=== PATIENT | male | born 1980 | race Caucasian/White ===

== ENCOUNTER 2021-05-17 02:30 | Emergency (ER) | payer SELFPAY ==
[2021-05-17 02:35] VITALS: BP 131/88; PULSE 88; RESP 18; TEMP 36.6; O2SAT 99; BMI 25.7
--- NOTE | 2021-05-17 02:39 | W.ED.SOB ---
HPI - SOB/Dyspnea General: Chief Complaint: Neck Pain/Injury Stated Complaint: Bleeding throat possible strep, SOB Time Seen by Provider: 05/17/21 02:38 History of Present Illness: HPI Narrative: Mr. Espitia is a 40-year-old gentleman without significant past medical history presents emergency department due to sore throat and chest pain/shortness of breath. Symptom onset of symptoms was gradual approximately 3 days ago with sore throat. He endorses initial pain with swallowing now generalized pain. He does have pink sputum associated with this and has tasted blood. Mild associated neck discomfort, mild generalized symptoms. Additionally has left sided arm and chest pain. Mild cough. No other specific changes in health. Does have a history of strep throat and tried amoxicillin though these were old pills. Is tolerating her secretions. No stridor or adventitious upper airway noises. Moderate intensity and worsening. No other specific changes in health, exacerbating, relieving factors identified. No fam hx of early cardiac , + smoking but no other known risk factors Review of Systems General: Reports: 10 or more systems reviewed and unremarkable except in HPI and below PFS ED PFSH: Medical History (Updated 05/25/21 @ 00:00 by ) No significant past medical history Surgical History (Updated 05/17/21 @ 02:53 by Wesley Simmons MD) No significant past surgical history Social History (Updated 05/17/21 @ 02:53 by Wesley Simmons MD) Smoking and tobacco status: current every day smoker Physical Exam Const: COMMON NORMALS: alert GENERAL APPEARANCE: cooperative, well developed and ill appearing (Somewhat ill-appearing) HENMT: COMMON NORMALS: normocephalic and atraumatic HEAD & SCALP: normocephalic and atraumatic THROAT: uvula midline OTHER: Mildly muffled/hoarse voice. No evidence of trismus. No evidence of Jorge's angina. Posterior pharynx is erythematous without plaques or bleeding lesions. No evidence of peritonsillar abscess. Eye: COMMON NORMALS: conjunctivae normal CONJUNCTIVA: Yes conjunctivae normal SCLERA: sclerae normal Neck/C-Spine: COMMON NORMALS: supple and no meningeal signs GENERAL: Yes trachea midline and Yes lymphadenopathy (Tender) OTHER: No tracheal crepitus or significant pain compared to other readings. Resp: COMMON NORMALS: normal respiratory effort EFFORT & INSPECTION: Yes able to speak in complete sentences Cardio: COMMON NORMALS: regular rate and regular rhythm RATE: regular rate RHYTHM: regular rhythm GI: COMMON NORMALS: Soft to palpation PALPATION: Yes Soft to palpation and No Tenderness to palpation present (GI) PERCUSSION: normal to percussion Extremity: GENERAL: Yes normal exam except as noted and No edema Neuro: COMMON NORMALS: moves all extremities SENSORIUM/ORIENTATION: Yes alert and No Orientation impaired MENINGEAL SIGNS: Yes no meningeal signs Psych: COMMON NORMALS: mental status grossly normal and Normal thought process present THOUGHT PROCESS: Normal thought process present Course ED course: - Patient was seen and evaluated by me at bedside -Vital signs obtained - Initial evaluation notable for somewhat ill appearance. Exam as above. - Symptom treatments ordered - Labs notable for negative strep and viral studies. - Given negative rapid strep patient is ill enough appearing that I believe he requires further evaluation to rule out deep space infection especially in the context of chest pain and arm pain associated with symptoms of throat pain - Imaging notable for peritonsillar infectious changes with mild deep tracking edema. With symptom treatment I had already ordered steroids. - Upon serial reexamination after treatment the patient was somewhat improved. There is no evidence of worsening. No evidence of stridor or impending airway compromise. Patient is tolerating oral secretions and p.o. intake. - Based on patient history, evaluation, labs, and imaging as interpreted the most likely cause of the patient's condition is peritonsillar infection without evidence of abscess and mild edema present. - The results of ED evaluation were discussed with the patient including prescriptions and/or symptomatic cares (if applicable) including appropriate and responsible use, followup plan, and return precautions. The patient verbalized understanding and felt safe for discharge. - Patient discharged in satisfactory condition. Note: Click bubbles or prepopulated kearney in note writing are used for assistance with data collection and billing and are inherently more limited than narrative and other text portions of this note. Please use narrative for additional clinical history and defer to narrative/free test for any case of contradictory information. If information appears in only free text or click bubble it should be considered present or absent as reported. Please contact note quality analyst/technical writer for clarifications of clinical information or contradictory information. Vital Signs: Vital signs: Vital Signs Temperature 97.8 F 05/17/21 02:35 Pulse Rate 94 05/17/21 05:16 Respiratory Rate 18 05/17/21 05:16 Blood Pressure 134/77 05/17/21 05:16 Pulse Oximetry 98 05/17/21 05:16 MDM - SOB/Dyspnea MDM Narrative: Medical decision making narrative: 40-year-old gentleman without significant past medical history presenting to the emergency department with sore throat. Strep study negative and viral studies negative. CT noted edema and enlargement of the right palatal tonsils with edema extending into the right parapharyngeal space and right hypopharynx, consistent with infection. However, no organized fluid collection. No evidence of airway compromise or adventitious sounds with breathing. Patient tolerated p.o. intake. Given course of steroids as well as antibiotics and will be discharged home with strict return precautions. Medical Records: Attestation: I reviewed the patient's medical records. Lab Data: Attestation: I reviewed the patient's lab results. Labs: Lab Results 05/17/21 05/17/21 05/17/21 03:15 03:15 03:15 Coronavirus 229E ( PCR) Nasal/Oral COVID-1 9 PCR Cancelled Influenza Type A A g Negative (Negative) Influenza Type B A g Negative (Negative) SARS-CoV-2 (PCR) Group A Strep Rapi d Negative (Negative) 05/17/21 03:19 Coronavirus 229E ( PCR) Not detected (NOT DETECT) Nasal/Oral COVID-1 9 PCR Influenza Type A A g Influenza Type B A g SARS-CoV-2 (PCR) Not detected (NOT DETECT) Group A Strep Rapi d Discharge Plan Discharge Patient Disposition: Home Clinical Impression: Cellulitis of tonsil, Pharyngeal edema, Acute sore throat Condition: Stable Prescriptions: New Augmentin 875-125 mg tablet 1 tab PO BID Qty: 20 RF: 0 Discharge Orders: Discharge ED (Routine); Ordered 05/17/21 Ordered By: Wesley Simmons Referrals: Isaac Gracia MD [Primary Care Provider] - Patient Instructions: Pharyngitis (ED), Tonsillitis (ED) Activity Restrictions/Additional Instructions: Thank you for visiting the emergency department. You were seen and evaluated for sore throat. You were found to have likely infection as well as some swelling. This will be treated with antibiotics. If swelling worsens this can create problems breathing, as discussed please return for any difficulty breathing, difficulty swallowing, noisy breathing, if you feel worse, or anything else that you are concerned about and feel needs emergency department evaluation. Coding Level of Care Code ED [employer]
--- NOTE | 2021-05-17 02:48 | ECG_ITS ---
[facility] Test Date: 2021-05-17 Pat Name: John Williamson Department: Room: Gender: Male [employer]: : 1980 Requested By: Wesley Simmons Order Number: [id number] Kayley MD: DAGOBERTO DAMON Measurements Intervals [place] Rate: 73 P: 54 MO: 146 QRS: 55 QRSD: 113 T: 35 QT: 393 QTc: 433 Interpretive Statements SINUS RHYTHM INCOMPLETE RIGHT BUNDLE BRANCH BLOCK [90+ ms QRS DURATION, TERMINAL R IN V1/V2, 40+ ms S IN I/aVL/V4/V5/V6] No previous ECG available for comparison Electronically Signed On 05-17-2021 18:19:09 CONTENT DIRECTOR by DAGOBERTO DAMON [email or web address]
--- NOTE | 2021-05-17 02:48 | XRR_ITS ---
PROCEDURE INFORMATION: Exam: XR Chest Exam date and time: 05/17/2021 2:48 AM Age: 40 years old Clinical indication: Shortness of breath; Patient HX: C/O chest discomfort with SOB. ; Additional info: Chest pain, cough TECHNIQUE: Imaging protocol: XR of the chest. Views: 1 view. COMPARISON: No relevant prior studies available. FINDINGS: Lungs: Calcified pulmonary nodule/nodules, consistent with prior granulomatous disease. Pleural spaces: Unremarkable. No pleural effusion. No pneumothorax. Heart/Mediastinum: Unremarkable. No cardiomegaly. Bones/joints: Unremarkable. XR/XR chest 1V portable [id number] IMPRESSION: No acute disease.
[2021-05-17] MEDS: dexamethasone 10 mg/mL INJ IM (03:02)
[2021-05-17] MEDS: ketorolac 30 mg/mL INJ 15 MG IM (03:02)
[2021-05-17 03:41] LABS: Rapid Strep A Test Negative (Negative)
--- NOTE | 2021-05-17 03:50 | CTR_ITS ---
PROCEDURE INFORMATION: Exam: CT Neck With Contrast Exam date and time: 05/17/2021 3:50 AM Age: 40 years old Clinical indication: Dysphagia / difficulty swallowing; Patient HX: Patient C/O worsening throat pain with dysphagia. Inflammation noted of upper airway on visual inspection. Negative strep test. ; Additional info: Sore throat, ? deep space infection TECHNIQUE: Imaging protocol: Computed tomography images of the neck with contrast. Radiation optimization: All CT scans at this facility use at least one of these dose optimization techniques: automated exposure control; mA and/or kV adjustment per patient size (includes targeted exams where dose is matched to clinical indication); or iterative reconstruction. Contrast material: OMNI 300; Contrast volume: 95 ml; Contrast route: INTRAVENOUS (IV); COMPARISON: CR (CHEST, ) 05/17/2021 2:52 AM RADIATION DOSE METRICS: Total DLP (mGy-cm): 424.67 FINDINGS: Paranasal sinuses: However, no organized fluid collection. Nasopharynx: Unremarkable. Oropharynx: There is enlargement of the right palatal tonsils with edema extending into the right parapharyngeal space and right hypopharynx, consistent with infection. Hypopharynx: Unremarkable. Larynx: Unremarkable. Normal epiglottis. Retropharyngeal space: No retropharyngeal fluid. Submandibular/Parotid glands: Normal. Glands are normal in size. Thyroid: 1.1 cm right thyroid lesion. Lymph nodes: Mildly enlarged bilateral cervical lymph nodes which are likely reactive. Trachea: Visualized trachea is unremarkable. Lungs: Unremarkable as visualized. Bones/joints: Unremarkable. No acute fracture. Soft tissues: 1.9 cm left posterior neck sebaceous cyst. CT/CT neck w con* [id number] IMPRESSION: 1. There is edema and enlargement of the right palatal tonsils with edema extending into the right parapharyngeal space and right hypopharynx, consistent with infection. However, no organized fluid collection. 2. 1.9 cm left posterior neck sebaceous cyst. 3. 1.1 cm right thyroid lesion. 4. Mildly enlarged bilateral cervical lymph nodes which are likely reactive. COMMENTS: Consistent with the [employer]'s Incidental Findings Committee white paper (J Am Love Radiol 2015): In patients aged 35 years and older with an incidental thyroid nodule equal to or greater than 1.[address], MRI or extrathyroidal US, further evaluation with dedicated thyroid US is recommended for patients with normal life expectancy and without comorbidities. For smaller nodules without suspicious features, no further evaluation or follow up is recommended.
[2021-05-17 03:58] LABS: Influenza A by IFA Negative (Negative); Influenza B by IFA Negative (Negative)
[2021-05-17] MEDS: iohexol 300 mg/mL 100 mL Btl IV (04:25)
[2021-05-17] MEDS: amoxicillin-clav 875-125 mg Tablet 1 TAB PO (05:12)
[2021-05-17 05:16] VITALS: BP 134/77; PULSE 94; RESP 18; O2SAT 98
[2021-05-17 05:17] LABS: Adenovirus Not Detected (NOT DETECT); Chlamydia Pneumoniae Not Detected (NOT DETECT); Coronavirus 229E,HKU1,NL63,OC4 Not Detected (NOT DETECT); Human Metapneumovirus Not Detected (NOT DETECT); Human Rhinovirus/Enterovirus Not Detected (NOT DETECT); Influenza A Not Detected (NOT DETECT); Influenza A H1 Not Detected (NOT DETECT); Influenza A H1-2009 Not Detected (NOT DETECT); Influenza A H3 Not Detected (NOT DETECT); Influenza B Not Detected (NOT DETECT); Mycoplasma Pneumoniae Not Detected (NOT DETECT); Parainfluenza Virus Type 1 Not Detected (NOT DETECT); Parainfluenza Virus Type 2 Not Detected (NOT DETECT); Parainfluenza Virus Type 3 Not Detected (NOT DETECT); Parainfluenza Virus Type 4 Not Detected (NOT DETECT); Respiratory Syncytial Virus A Not Detected (NOT DETECT); Respiratory Syncytial Virus B Not Detected (NOT DETECT); SARS-COV-2 Not Detected (NOT DETECT)
== END 2021-05-17 05:10 | disposition home or self-care (01) ==
PROVIDERS: Emergency Provider Emergency Medicine; PCP General Practice
DX: J36 Peritonsillar abscess (principal); J39.2 Other diseases of pharynx; F17.210 Nicotine dependence, cigarettes, uncomplicated; Z20.822 Contact with and (suspected) exposure to COVID-19
CPT/HCPCS: 70491; 71045; 87081; 87635; 87804; 87880; 93005; 96372; 99283; J1100; J1885; Q9967

== ENCOUNTER → 2021-10-08 16:25 | Outpatient (BNVA) | payer SELFPAY | PROVIDERS: PCP General Practice; Visit Provider Family Medicine | DX: E11.40 Type 2 diabetes mellitus with diabetic neuropathy, unspecified (principal) | CPT/HCPCS: 82962 ==

== ENCOUNTER → 2021-12-18 16:19 | Outpatient (BNVA) | payer SELFPAY | PROVIDERS: PCP Family Medicine; Visit Provider Family Medicine | DX: E11.40 Type 2 diabetes mellitus with diabetic neuropathy, unspecified (principal); E11.42 Type 2 diabetes mellitus with diabetic polyneuropathy; N52.9 Male erectile dysfunction, unspecified | CPT/HCPCS: 80053; 80061; 83036; 84443 ==

== ENCOUNTER → 2023-03-02 10:17 | Outpatient (BNVA) | payer OTHER, SELFPAY | PROVIDERS: PCP Family Medicine; Visit Provider Family Medicine | DX: E11.40 Type 2 diabetes mellitus with diabetic neuropathy, unspecified (principal); N52.9 Male erectile dysfunction, unspecified | CPT/HCPCS: 80053; 80061; 83036 ==

== ENCOUNTER 2024-02-04 09:00 | Outpatient (CLI) | payer OTHER, SELFPAY ==
--- NOTE | 2024-02-04 09:00 | USCV_ITS ---
John Williamson Age: 43 Gender: M : 1980 Exam Date: 02/04/2024 09:24 Ordering Phys: Jordi Hernandez DO Technologist: JOSE [place]am [place] [facility] [place]: Pt kicked by horse in lt lower leg. Ant leiva HISTORY: Kicked in leiva on lt. LLE very swollen. Accident 3 weeks ago. PROCEDURES: Venous duplex imaging was performed in only the left lower extremity. The following venous structures were evaluated: common femoral vein, profunda vein, proximal portion of the greater saphenous vein, superficial femoral vein, and the popliteal vein. In addition, the posterior tibial and peroneal trunk were evaluated. Serial compression, augmentation maneuvers, and spectral Doppler flow evaluation were performed. FINDINGS: Normal 2-D Doppler and augmentation and compressibility throughout the lower extremity venous structures. Additional imaging through the proximal calf veins also reveals no thrombus. Limited evaluation of the greater saphenous vein is patent with no thrombus. The LLE edema is noted at site of injury. CONCLUSIONS No DVT left lower extremity. Subcutaneous edema. Dr. Milla Sierra DO (Electronically Signed) Final Date: 04 February 2024 10:44 S
== END 2024-02-04 09:16 | disposition home or self-care (01) ==
PROVIDERS: PCP Family Medicine; Visit Provider Family Medicine
DX: R22.42 Localized swelling, mass and lump, left lower limb (principal); M79.662 Pain in left lower leg
CPT/HCPCS: 93971